=== PATIENT | female | born 1975 | race Caucasian/White ===

== ENCOUNTER 2016-05-15 10:16 | Emergency (ER) | payer SELFPAY ==
--- NOTE | 2016-05-15 10:31 | ER Document Report ---
ED Medical Screen (RME) - General Stated Complaint: NUMBNESS LEFT LEG Notes: patient is a 41 year old female PMH s/f rheumatoid arthritis p/w left leg numbness that initially p/w this complaint 03/10/16. At that time she was diagnosed with shingles and d/c home. Patient states that she had c/o left abdominal numbness and tingling with LE weakness lasting for about 14 days total. Since then she states her symptoms resolved but have come back. She admits to return of a vesicular rash about 7 days ago that has resolved but leaving numb/tingling feeling over her abdomen and numbness below the left knee. She is also concerned b/c she hasnt been able to urinate today. Denies UI/ SI, saddle anesthesia, pyuria, dysuria, hematuria. PMH: RA (-) pronator drift, no facial asymmetry, able to swallow coffee and speak normally. Able to move her left leg but weaker then the right. Strength 4/5 on the left, 5/5 on the right. DP intact b/l I have greeted and performed a rapid initial assessment of this patient. A comprehensive ED assessment and evaluation of the patient, analysis of test results and completion of the medical decision making process will be conducted by additional ED providers. TRAVEL OUTSIDE OF THE [place] IN LAST 30 DAYS: No - Related Data Allergies/Adverse Reactions: promethazine HCl [From Phenergan] Allergy (Verified 05/15/16 10:17) Past Medical History Musculoskeltal Medical History: Reports Hx Arthritis - ra - Immunizations Immunizations up to date: Yes Hx Diphtheria, Pertussis, Tetanus Vaccination: No
[2016-05-15 13:45] LABS: APPEARANCE,URINE TURBID; BILIRUBIN,URINE NEGATIVE (NEGATIVE); CALCIUM OXALATE CRYSTALS,URINE RARE /HPF; GLUCOSE, URINE NEGATIVE (NEGATIVE); KETONES,URINE TRACE mg/dL (NEGATIVE); LEUKOCYTE ESTERASE,URINE MODERATE (NEGATIVE); NITRITE,URINE NEGATIVE (NEGATIVE); PROTEIN,URINE 30 mg/dL (NEGATIVE); URINE SPECIFIC GRAVITY 1.029; UROBILINOGEN,URINE NEGATIVE mg/dL (<2.0)
--- NOTE | 2016-05-15 16:44 | ER Document Report ---
ED General - General Time seen by provider: 16:50 Mode of Arrival: Ambulatory Information source: Patient TRAVEL OUTSIDE OF THE [place]. IN LAST 30 DAYS: No - HPI Onset: Other - see HPI notes Quality of pain: Other - numbness <LESLYE BARKSDALE - Last Filed: 05/15/16 16:52> <VA ROSENTHAL - Last Filed: 05/15/16 23:29> <JAYME KINSEY - Last Filed: 05/16/16 06:17> - General Chief Complaint: Numbness Stated Complaint: NUMBNESS LEFT LEG Notes: Patient is a 41 year old female presenting to the emergency department with complaints of numbness to her left leg. Patient states that her left leg is completely numb and is worse from the knee down. Patient states that she cannot feel anything and she is unable to ambulate on her leg. Patient states her was helping her walk. Patient states her numbness was onset yesterday. Patient also complains of not being able to urinate today. Patient states she drank "lots of fluids" which was a cup of coffee and a small cup of water and states she has not been able to urinate. Patient provided a urine sample without a bean and it was quite concentrated. Patient then states she cannot feel when she needs to urinate. Patient has been taking tylenol and ibuprofen for some back pain she has due to RA. Patient was seen in 02/2016 for similar symptoms, numbness from the left inferior chest to the abdomen, thigh, and foot ; this lasted for 2 weeks. Patient also states she had "shingles" at this time which was on "both sides of her abdomen." Patient states she has a spot on her shoulder blades. Patient is allergic to promethazine HCl. (LESLYE BARKSDALE) - Related Data Allergies/Adverse Reactions: promethazine HCl [From Phenergan] Allergy (Verified 05/15/16 10:17) Past Medical History - General Information source: Patient - Social History Smoking Status: Never Smoker Cigarette use (# per day): No Chew tobacco use (# tins/day): No Frequency of alcohol use: None Drug Abuse: None Family History: None Patient has suicidal ideation: No Patient has homicidal ideation: No Pulmonary Medical History: Reports: Hx Bronchitis Musculoskeltal Medical History: Reports Hx Arthritis - RA Past Surgical History: Reports: Hx Gynecologic Surgery - D&C - Immunizations Immunizations up to date: Yes Hx Diphtheria, Pertussis, Tetanus Vaccination: No <LESLYE BARKSDALE - Last Filed: 05/15/16 16:52> Review of Systems - Review of Systems Constitutional: No symptoms reported EENT: No symptoms reported Cardiovascular: No symptoms reported Respiratory: No symptoms reported Gastrointestinal: No symptoms reported Genitourinary: See HPI Female Genitourinary: No symptoms reported Musculoskeletal: See HPI Skin: No symptoms reported Hematologic/Lymphatic: No symptoms reported Neurological/Psychological: No symptoms reported -: Yes All other systems reviewed and negative <LESLYE BARKSDALE - Last Filed: 05/15/16 16:52> Physical Exam - Vital signs Interpretation: Normal - General General appearance: Appears well, Alert In distress: Mild - HEENT Head: Normocephalic, Atraumatic Eyes: Normal Pupils: PERRL Mucous membranes: Moist - Respiratory Respiratory status: No respiratory distress Chest status: Nontender Breath sounds: Normal Chest palpation: Normal - Cardiovascular Rhythm: Regular Heart sounds: Normal auscultation Murmur: No - Abdominal Inspection: Normal Distension: No distension Bowel sounds: Normal Tenderness: Nontender Organomegaly: No organomegaly - Back Back: Normal, Nontender - Extremities General upper extremity: Normal inspection, Normal ROM, Normal strength General lower extremity: Normal inspection, Normal ROM, Normal strength, Other - sensation of left leg is intact, patient is able to feel light and gentle palpations of the calf up to the knee. No: Edema - Neurological Neuro grossly intact: Yes Cognition: Normal Orientation: AAOx4 [place] Coma Scale Eye Opening: Spontaneous [place] Coma Scale Verbal: Oriented Ellie Coma Scale Motor: Obeys Commands [place] Coma Scale Total: 15 Speech: Normal Sensory: Normal - Psychological Associated symptoms: Normal affect, Normal mood - Skin Skin Temperature: Warm Skin Moisture: Dry <LESLYE BARKSDALE - Last Filed: 05/15/16 16:52> - Extremities General lower extremity: No: Normal strength - The patient's left lower extremity is tender to palpate throughout the entire extremity. The patient's motor function seems to be slightly weaker with dorsi and plantar flexion at the ankle on the left compared to right. She complains of severe pain in the leg when I have her dorsiflex and plantar flex against resistance. The skin is warm with normal capillary refill, there is no swelling at all. <VA ROSENTHAL - Last Filed: 05/15/16 23:29> <JAYME KINSEY - Last Filed: 05/16/16 06:17> - Vital signs Vitals: Temp Pulse Resp BP Pulse Ox 97.9 F 125 H 14 100/75 100 05/15/16 10:21 05/15/16 10:21 05/15/16 10:21 05/15/16 10:21 05/15/16 10:21 (LESLYE BARKSDALE) (VA ROSENTHAL) (JAYME KINSEY) Course <LESLYE BARKSDALE - Last Filed: 05/15/16 16:52> - Laboratory Result Diagrams: 05/15/16 17:42 05/15/16 17:42 - Diagnostic Test Radiology reviewed: Reports reviewed - MRI of the lumbar spine is normal - Consults Dr. Oh Time consulted: 23:00 Consulted provider: other - He is unwilling to admit the patient for a trial of steroids to see if that improves her symptoms, and then transfer out if there is no improvement. We do not have neurology or rheumatology on staff - Transfer of Care Care transferred to following provider: Dr. Kinsey <VA ROSENTHAL - Last Filed: 05/15/16 23:29> - Laboratory Result Diagrams: 05/15/16 17:42 05/15/16 17:42 <JAYME KINSEY - Last Filed: 05/16/16 06:17> - Re-evaluation Re-evalutation: 05/15/16 19:06 A Bean catheter was placed. There was 500 MLS of concentrated urine. We will get an MRI of the L-spine to exclude an emergent neurological cause for her symptoms. 05/15/16 22:36 The MRI is completely normal. At this point there is no explanation for her left lower extremity paresthesias and weakness. I told her that an intracranial issue such as multiple sclerosis should not result in the pain she is feeling when she moves that extremity. In trying to discuss treatment options and management, the patient and spouse reveal that there are no lower have insurance because of recent increased costs. They do not have primary care provider. She is adamant that she cannot walk any longer because of the left lower extremity weakness. She becomes tearful and crying when we try to discuss outpatient management options. (VA ROSENTHAL) 05/16/16 05:46 I have reevaluated the patient. I'm concerned because she has significant weakness of the left lower extremity with some numbness. She has some strength with plantar and dorsiflexion but it is minimal. She does have Bean catheter in place because of the urinary retention. She does complain of several anesthesia. Symptoms sound very consistent with cauda equina syndrome. She did have the lumbar spine MRI which was negative. I asked her further about her history. She says that she was having some pain in the thoracic spine over last 2-3 days prior to the symptoms beginning. She does have a history of recurrent shingles the radiates around her left flank and the pain does start to run the thoracic spine. She's had some burning along that dermatome recently but no recurrence of rash. Dr. Ngo checked out to me that the patient would be getting an MRI of the head in the morning. I will add an MRI of thoracic spine. She has been given steroids. Patient says her symptoms have not changed since he arrived. She says they have not gotten worse but they have not gotten better either. I'm concerned with patient's evaluation and therefore I will go ahead and consult with neurosurgery at [facility] and see if they have any further recommendations leading up to obtain the MRI. I'm awaiting neurosurgery's response. 05/16/16 05:49 05/16/16 06:[address] Taylor, neurosurgeon from [facility] , and explained him the patient's physical exam findings and my concerns for possible spinal cord impingement. Informed him that have ordered the thoracic spine MRI but will not be obtainable to around 8 AM. At this time he says that he agrees with the ordered MRI. He recommends giving the patient Decadron. He says that the patient has a spinal cord lesion on MRI than he be happy to accept the patient for transfer. If there is not a spinal cord lesion then request that we consult the medicine team for transfer and he would see the patient in consult. I have explained the situation to the patient and she is very very agreeable to the plan. (JAYME KINSEY) - Vital Signs Vital signs: Temp Pulse Resp BP Pulse Ox 98.4 F 103 H 16 119/78 98 05/16/16 06:00 05/16/16 06:00 05/16/16 06:00 05/16/16 06:00 05/16/16 06:00 (LESLYE BARKSDALE) (VA ROSENTHAL) (JAYME KINSEY) - Laboratory Laboratory results interpreted by me: 05/15/16 05/15/16 05/15/16 13:16 17:42 17:42 WBC 3.1 L RBC 5.33 H MCV 73 L MCH 23.5 L RDW 16.6 H Abs Neuts (Manual) 1.4 L ESR 43 H Potassium 3.5 L Creatinine 0.44 L Glucose 122 H Creatine Kinase 26 L C-Reactive Protein 10.2 H Total Protein 8.4 H Urine Protein 30 H Urine Ketones TRACE H Ur Leukocyte Esterase MODERATE H 05/15/16 17:42 WBC RBC MCV MCH RDW Abs Neuts (Manual) ESR Potassium Creatinine Glucose Creatine Kinase C-Reactive Protein Total Protein Urine Protein Urine Ketones TRACE H Ur Leukocyte Esterase (LESLYE BARKSDALE) (VA ROSENTHAL) (JAYME KINSEY) - Transfer of Care Notes: 05/15/16 23:29 The patient will remain in the emergency room tonight and get an MRI of the brain in the morning. Ultimate disposition depends on results of a brain MRI and her response to steroids. (VA ROSENTHAL) Discharge <LESLYE BARKSDALE - Last Filed: 05/15/16 16:52> <VA ROSENTHAL - Last Filed: 05/15/16 23:29> <JAYME KINSEY - Last Filed: 05/16/16 06:17> - Discharge Clinical Impression: Incomplete emptying of bladder, Skin sensation disturbance, Weakness of lower extremity Condition: Stable Scribe Attestation: 05/15/16 23:30 I personally performed the services described in the documentation, reviewed and edited the documentation which was dictated to the scribe in my presence, and it accurately records my words and actions. (VA ROSENTHAL) Scribe Documentation - Scribe Written by Scribe:: Leslye Barksdale 05/15/16 17:05 acting as scribe for :: Vicki <LESLYE BARKSDALE - Last Filed: 05/15/16 16:52>
[2016-05-15 18:07] LABS: APPEARANCE,URINE CLEAR; BILIRUBIN,URINE NEGATIVE (NEGATIVE); GLUCOSE, URINE NEGATIVE (NEGATIVE); KETONES,URINE TRACE mg/dL (NEGATIVE); LEUKOCYTE ESTERASE,URINE NEGATIVE (NEGATIVE); NITRITE,URINE NEGATIVE (NEGATIVE); PROTEIN,URINE NEGATIVE (NEGATIVE); URINE SPECIFIC GRAVITY 1.023; UROBILINOGEN,URINE NEGATIVE mg/dL (<2.0)
[2016-05-15 18:10] LABS: HEMATOCRIT 38.9 % (36.0-47.0); HEMOGLOBIN 12.5 g/dL (12.0-15.5); HGB HCT DIFFERENCE -1.4; MEAN CORPUSCULAR HEMOGLOBIN 23.5 pg (27.0-33.4); MEAN CORPUSCULAR HGB CONC 32.2 g/dL (32.0-36.0); MEAN CORPUSCULAR VOLUME 73 fl (80-97); RED BLOOD COUNT 5.33 10^6/uL (3.72-5.28); RED CELL DISTRIBUTION WIDTH 16.6 % (11.5-14.0); WHITE BLOOD COUNT 3.1 10^3/uL (4.0-10.5)
[2016-05-15 18:15] LABS: ALANINE AMINOTRANSFERASE 48 U/L (9-52); ALKALINE PHOSPHATASE 91 U/L (38-126); ANION GAP 11 (5-19); ASPARTATE AMINO TRANSFERASE 36 U/L (14-36); BILIRUBIN,TOTAL 0.6 mg/dL (0.2-1.3); BLOOD UREA NITROGEN 17 mg/dL (7-20); C-REACTIVE PROTEIN 10.2 mg/L (<10.0); CALCIUM 9.4 mg/dL (8.4-10.2); CARBON DIOXIDE 27 mmol/L (22-30); CHLORIDE 102 mmol/L (98-107); CREATINE KINASE 26 U/L (30-135); CREATININE RESULT 0.44 mg/dL (0.52-1.25); GLUCOSE 122 mg/dL (75-110); MAGNESIUM 2.1 mg/dL (1.6-2.3); POTASSIUM 3.5 mmol/L (3.6-5.0); SODIUM 140.2 mmol/L (137-145); TOTAL PROTEIN 8.4 g/dL (6.3-8.2)
[2016-05-15 18:36] LABS: ERYTHROCYTE SEDIMENTATION RATE 43 mm/hr (0-20)
[2016-05-15 18:44] LABS: BASOPHILS % (MANUAL) 2 % (0-2); EOSINOPHILS % (MANUAL) 2 % (0-6); LYMPHOCYTES % (MANUAL) 31 % (13-45); TOTAL CELLS COUNTED 100
[2016-05-15 18:50] LABS: TOXIC GRANULATION 1+
[2016-05-15 18:51] LABS: ANISOCYTOSIS 1+; HYPOCHROMASIA SLIGHT; MICROCYTOSIS 1+; OVALOCYTES 1+; SCHISTOCYTES SLIGHT; TEAR DROP CELLS SLIGHT
[2016-05-15] MEDS ORDERED: PREDNISONE 20 MG TABLET PO ONE (23:08)
[2016-05-16] MEDS ORDERED: DEXAMETHASONE SOD PHOS INJ 10 MG/1 ML VIAL IV ONE (06:10)
[2016-05-16] MEDS ORDERED: NORMAL SALINE 1000 ML 1,000 ML IV ONE (08:45)
--- NOTE | 2016-05-16 13:38 | ER Document Report ---
ED General - General Chief Complaint: Numbness Stated Complaint: NUMBNESS LEFT LEG Mode of Arrival: Ambulatory TRAVEL OUTSIDE OF THE [place] IN LAST 30 DAYS: No - HPI Patient complains to provider of: numbness weakness left leg Notes: Patient coming in with numbness and weakness of the left leg a decrease in depression left leg. Patient was seen and evaluated by provider approximately now 24 hours ago. Patient's disposition has been pending MRI results. Patient upon my examination resting comfortably in no acute distress. Patient still states no change in her symptoms but is unable to move her left leg. Patient now has a Donis catheter placed due to urinary incontinence. Patient still states she is still having numbness and tingling in the saddle region Denies fevers chills nausea vomiting increased pain or change in symptoms. - Related Data Allergies/Adverse Reactions: promethazine HCl [From Phenergan] Allergy (Verified 05/15/16 10:17) Past Medical History - General Information source: Patient - Social History Smoking Status: Never Smoker Cigarette use (# per day): No Chew tobacco use (# tins/day): No Frequency of alcohol use: None Drug Abuse: None Family History: None Patient has suicidal ideation: No Patient has homicidal ideation: No Pulmonary Medical History: Reports: Hx Bronchitis Renal/ Medical History: Denies: Hx Peritoneal Dialysis Musculoskeltal Medical History: Reports Hx Arthritis - RA Past Surgical History: Reports: Hx Gynecologic Surgery - D&C - Immunizations Immunizations up to date: Yes Hx Diphtheria, Pertussis, Tetanus Vaccination: No Review of Systems - Review of Systems Constitutional: No symptoms reported EENT: No symptoms reported Cardiovascular: No symptoms reported Respiratory: No symptoms reported Gastrointestinal: No symptoms reported Genitourinary: No symptoms reported Female Genitourinary: No symptoms reported Musculoskeletal: Other - Left lower extremity weakness Skin: No symptoms reported Hematologic/Lymphatic: No symptoms reported Neurological/Psychological: No symptoms reported Physical Exam - Vital signs Vitals: Temp Pulse Resp BP Pulse Ox 97.9 F 125 H 14 100/75 100 05/15/16 10:21 05/15/16 10:21 05/15/16 10:21 05/15/16 10:21 05/15/16 10:21 Interpretation: Normal - General General appearance: Appears well, Alert - HEENT Head: Normocephalic, Atraumatic Eyes: Normal Pupils: PERRL - Respiratory Respiratory status: No respiratory distress Chest status: Nontender Breath sounds: Normal Chest palpation: Normal - Cardiovascular Rhythm: Regular Heart sounds: Normal auscultation Murmur: No - Abdominal Inspection: Normal Distension: No distension Bowel sounds: Normal Tenderness: Nontender Organomegaly: No organomegaly - Back Back: Normal, Nontender - Extremities General upper extremity: Normal inspection, Nontender, Normal color, Normal ROM , Normal temperature General lower extremity: Normal inspection, Normal color, Normal temperature, Other - Right leg unaffected with normal deep tendon reflexes at the patellar region. Patient's left leg patient is unable to raise her left leg off of the stretcher. Diffusely tender throughout palpation of the left leg. There are no deep tendon reflexes on examination. Patient does have some "numbness or decreased sensation in the sellar region. At this time defers rectal exam. No : Benjamin's sign - Neurological Neuro grossly intact: Yes Cognition: Normal Orientation: AAOx4 [place] Coma Scale Eye Opening: Spontaneous Ellie Coma Scale Verbal: Oriented Ellie Coma Scale Motor: Obeys Commands Ellie Coma Scale Total: 15 Speech: Normal Sensory: Normal - Psychological Associated symptoms: Normal affect, Normal mood - Skin Skin Temperature: Warm Skin Moisture: Dry Skin Color: Normal Course - Re-evaluation Re-evalutation: 05/16/16 13:37 Patient MRI shows spinal cord lesion with some swelling C4-C5 lesion at T1-T5. Discussed with our radiologist who recommended patient be transferred to [place] for [facility]. I placed a call in to [place] waiting for neurosurgery consultation. Otherwise patient is symptomatically stable. Will remain nothing by mouth we' ll continue IV fluids. 05/16/16 14:[address]Kari Zayas Neurosurgery at [place]. Patient will be transferred to the ER. Patient was updated on transfer status. - Vital Signs Vital signs: Temp Pulse Resp BP Pulse Ox 98.4 F 103 H 16 119/78 98 05/16/16 06:00 05/16/16 06:00 05/16/16 06:00 05/16/16 06:00 05/16/16 06:00 - Laboratory Result Diagrams: 05/15/16 17:42 05/15/16 17:42 Laboratory results interpreted by me: 05/15/16 05/15/16 05/15/16 13:16 17:42 17:42 WBC 3.1 L RBC 5.33 H MCV 73 L MCH 23.5 L RDW 16.6 H Abs Neuts (Manual) 1.4 L ESR 43 H Potassium 3.5 L Creatinine 0.44 L Glucose 122 H Creatine Kinase 26 L C-Reactive Protein 10.2 H Total Protein 8.4 H Urine Protein 30 H Urine Ketones TRACE H Ur Leukocyte Esterase MODERATE H 05/15/16 17:42 WBC RBC MCV MCH RDW Abs Neuts (Manual) ESR Potassium Creatinine Glucose Creatine Kinase C-Reactive Protein Total Protein Urine Protein Urine Ketones TRACE H Ur Leukocyte Esterase Discharge - Discharge Clinical Impression: Urinary retention with incomplete bladder emptying, Paresthesias/numbness, spinal cord lesion mass Weakness of lower extremity Qualifiers: Laterality: left Qualified Code(s): R29.898 - Other symptoms and signs involving the musculoskeletal system Condition: Stable Disposition: [facility]
[2016-05-16] MEDS ORDERED: POTASSIUM CHLORIDE 10 MEQ TABLET.SA PO ONE (14:15)
[2016-05-16 20:23] VITALS: BP 125/82
== END 2016-05-16 19:57 | disposition short-term general hospital (02) ==
LOC: ER 10:16
DX: G95.9 Disease of spinal cord, unspecified (principal); R20.0 Anesthesia of skin; R53.1 Weakness; R32 Unspecified urinary incontinence; R33.9 Retention of urine, unspecified; M06.9 Rheumatoid arthritis, unspecified; Z88.8 Allergy status to other drugs, medicaments and biological substances
CPT/HCPCS: 99284; 51702; 96374; 36415; 82550; 83735; 85025; 85652; 86140; 80053; 81001; 72156; 72157; 72148; A9577; J7512; J7030; J1100

== ENCOUNTER 2016-09-21 18:33 | Emergency (ER) | payer MEDICAID ==
[2016-09-21] MEDS ORDERED: NORMAL SALINE 1000 ML 1,000 ML IV ONE (19:10)
--- NOTE | 2016-09-21 19:11 | ER Document Report ---
ED Medical Screen (RME) - General Chief Complaint: Numbness Stated Complaint: NUMBNESS Time Seen by Provider: 09/21/16 18:59 TRAVEL OUTSIDE OF THE [place].S. IN LAST 30 DAYS: No - HPI Notes: 09/21/16 19:10 Patient with neuro myelitis optica seen at [place] for increasing numbness and weakness. - Related Data Allergies/Adverse Reactions: promethazine HCl [From Phenergan] Allergy (Verified 09/21/16 18:39) Past Medical History Pulmonary Medical History: Reports: Hx Bronchitis Renal/ Medical History: Denies: Hx Peritoneal Dialysis Musculoskeltal Medical History: Reports Hx Arthritis - RA Past Surgical History: Reports: Hx Gynecologic Surgery - D&C - Immunizations Immunizations up to date: Yes Hx Diphtheria, Pertussis, Tetanus Vaccination: No Review of Systems - Review of Systems Constitutional: Weakness Physical Exam - Vital signs Vitals: Temp Pulse Resp BP Pulse Ox 98.2 F 136 H 16 119/72 100 09/21/16 18:39 09/21/16 18:39 09/21/16 18:39 09/21/16 18:39 09/21/16 18:39 - Respiratory Respiratory status: No respiratory distress Chest status: Nontender Breath sounds: Normal Chest palpation: Normal Course - Vital Signs Vital signs: Temp Pulse Resp BP Pulse Ox 98.2 F 136 H 16 119/72 100 09/21/16 18:39 09/21/16 18:39 09/21/16 18:39 09/21/16 18:39 09/21/16 18:39
[2016-09-21 19:20] LABS: MEAN CORPUSCULAR HEMOGLOBIN 23.2 pg (27.0-33.4); MEAN CORPUSCULAR HGB CONC 31.3 g/dL (32.0-36.0); MEAN CORPUSCULAR VOLUME 74 fl (80-97); RED BLOOD COUNT 4.32 10^6/uL (3.72-5.28); RED CELL DISTRIBUTION WIDTH 21.1 % (11.5-14.0); WHITE BLOOD COUNT 4.4 10^3/uL (4.0-10.5)
[2016-09-21 19:36] LABS: ALANINE AMINOTRANSFERASE 34 U/L (9-52); ALBUMIN 4.3 g/dL (3.5-5.0); ALKALINE PHOSPHATASE 78 U/L (38-126); ANION GAP 11 (5-19); ASPARTATE AMINO TRANSFERASE 20 U/L (14-36); BASOPHILS % (MANUAL) 2 % (0-2); BILIRUBIN,DIRECT 0.3 mg/dL (0.0-0.4); BILIRUBIN,TOTAL 0.5 mg/dL (0.2-1.3); BLOOD UREA NITROGEN 14 mg/dL (7-20); CALCIUM 9.1 mg/dL (8.4-10.2); CARBON DIOXIDE 25 mmol/L (22-30); CHLORIDE 106 mmol/L (98-107); CREATININE RESULT 0.34 mg/dL (0.52-1.25); EOSINOPHILS % (MANUAL) 4 % (0-6); GLUCOSE 110 mg/dL (75-110); LYMPHOCYTES % (MANUAL) 19 % (13-45); PHOSPHORUS 3.4 mg/dL (2.5-4.5); POTASSIUM 3.3 mmol/L (3.6-5.0); SODIUM 142.4 mmol/L (137-145); TOTAL CELLS COUNTED 100; TOTAL PROTEIN 7.2 g/dL (6.3-8.2)
[2016-09-21 19:37] LABS: CREATINE KINASE < 20 U/L (30-135)
[2016-09-21 19:41] LABS: ANISOCYTOSIS 3+; MICROCYTOSIS 1+; OVALOCYTES SLIGHT; POIKILOCYTOSIS 1+; POLYCHROMASIA SLIGHT; TARGET CELLS SLIGHT; TEAR DROP CELLS SLIGHT
[2016-09-21 19:42] LABS: PLATELET CLUMPS PRESENT
[2016-09-21 19:43] LABS: TOXIC GRANULATION SLIGHT
--- NOTE | 2016-09-21 20:16 | ER Document Report ---
ED General - General Chief Complaint: Numbness Stated Complaint: NUMBNESS Time Seen by Provider: 09/21/16 18:59 Mode of Arrival: Wheelchair Information source: Patient, Parent Notes: 41-year-old female history of neuromuscular optica with recent treatment with rituximab and plasmapheresis 2 weeks ago and steroids 1 month ago presents with complaints of paralysis numbness of the bilateral lower extremities and numbness up to her mid chest over the past day or 2 TRAVEL OUTSIDE OF THE [place] IN LAST 30 DAYS: No - HPI Onset: Last week Onset/Duration: Persistent, Worse Quality of pain: No pain Severity: Severe Pain Level: Denies Associated symptoms: Weakness Exacerbated by: Denies Relieved by: Denies Similar symptoms previously: Yes Recently seen / treated by doctor: Yes - Related Data Allergies/Adverse Reactions: promethazine HCl [From Phenergan] Allergy (Verified 09/21/16 18:39) Past Medical History - Social History Smoking Status: Never Smoker Cigarette use (# per day): No Chew tobacco use (# tins/day): No Smoking Education Provided: No Family History: None Patient has suicidal ideation: No Patient has homicidal ideation: No Pulmonary Medical History: Reports: Hx Bronchitis Renal/ Medical History: Denies: Hx Peritoneal Dialysis Musculoskeltal Medical History: Reports Hx Arthritis - RA Past Surgical History: Reports: Hx Gynecologic Surgery - D&C - Immunizations Immunizations up to date: Yes Hx Diphtheria, Pertussis, Tetanus Vaccination: No Review of Systems - Review of Systems Notes: REVIEW OF SYSTEMS: CONSTITUTIONAL : Denies fever, chills, or sweats. Denies recent illness. EENT: Denies eye, ear, throat, or mouth pain or symptoms. Denies nasal or sinus congestion or discharge. Denies throat, tongue, or mouth swelling or difficulty swallowing. CARDIOVASCULAR: Denies chest pain. Denies palpitations or racing or irregular heart beat. Denies ankle edema. RESPIRATORY: Denies cough, cold, or chest congestion. Denies shortness of breath, difficulty breathing, or wheezing. GASTROINTESTINAL: Denies abdominal pain or distention. Denies nausea, vomiting , or diarrhea. Denies blood in vomitus, stools, or per rectum. Denies black, tarry stools. Denies constipation. GENITOURINARY: Denies difficulty urinating, painful urination, burning, frequency, blood in urine, or discharge. FEMALE GENITOURINARY: Denies vaginal bleeding, heavy or abnormal periods, irregular periods. Denies vaginal discharge or odor. MUSCULOSKELETAL: Denies back or neck pain or stiffness. Denies joint pain or swelling. SKIN: Denies rash, lesions or sores. HEMATOLOGIC : Denies easy bruising or bleeding. LYMPHATIC: Denies swollen, enlarged glands. NEUROLOGICAL: Admits to weakness numbness of the lower extremities PSYCHIATRIC: Denies anxiety or stress. Denies depression, suicidal ideation, or homicidal ideation. ALL OTHER SYSTEMS REVIEWED AND NEGATIVE. PHYSICAL EXAMINATION: GENERAL: Well-appearing, well-nourished and in no acute distress. HEAD: Atraumatic, normocephalic. EYES: Pupils equal round and reactive to light, extraocular movements intact, conjunctiva are normal. ENT: Nares patent, oropharynx clear without exudates. Moist mucous membranes. NECK: Normal range of motion, supple without lymphadenopathy LUNGS: Breath sounds clear to auscultation bilaterally and equal. No wheezes rales or rhonchi. HEART: Regular rate and rhythm without murmurs ABDOMEN: Soft, nontender, nondistended abdomen. No guarding, no rebound. No masses appreciated. Female : deferred Musculoskeletal: Normal range of motion, no pitting or edema. No cyanosis. NEUROLOGICAL: Patient is unable to move her bilateral lower extremities, numbness is noted from toes to the T5 region PSYCH: Normal mood, normal affect. SKIN: Warm, Dry, normal turgor, no rashes or lesions noted. Dictation was performed using [email or web address] voice recognition software Physical Exam - Vital signs Vitals: Temp Pulse Resp BP Pulse Ox 98.2 F 136 H 16 119/72 100 09/21/16 18:39 09/21/16 18:39 09/21/16 18:39 09/21/16 18:39 09/21/16 18:39 Course - Re-evaluation Re-evalutation: 09/21/16 20:16 [facility] transfer contacted ] Pt physicians is Dr Mauricio 09/21/16 20:28 Dr Perez requests holdingon any meds for now,agrees patient will need transfer there is no respiratroy distress at this time but obvious concerns for diaphragm involvement 09/21/16 20:32 09/21/16 20:51 There is no involvement of the diaphragm at this moment however patient does have some difficulty with coughing, due to this concern she will be transported emergency department to emergency department at [facility] she is awaiting transport at this time - Vital Signs Vital signs: Temp Pulse Resp BP Pulse Ox 98.2 F 108 H 18 116/76 100 09/21/16 18:39 09/21/16 20:06 09/21/16 20:06 09/21/16 20:06 09/21/16 20:06 - Laboratory Result Diagrams: 09/21/16 19:08 09/21/16 19:08 Laboratory results interpreted by me: 09/21/16 09/21/16 19:08 19:08 Hgb 10.0 L Hct 32.0 L MCV 74 L MCH 23.2 L MCHC 31.3 L RDW 21.1 H Monocytes % (Manual) 15 H Potassium 3.3 L Creatinine 0.34 L Creatine Kinase < 20 L Discharge - Discharge Clinical Impression: Neuromuscular optica, Paraplegia Condition: Serious Disposition: [facility]
--- NOTE | 2016-09-21 22:41 | EKG REPORT ---
SEVERITY:- OTHERWISE NORMAL ECG - SINUS TACHYCARDIA LEFT AXIS DEVIATION : Confirmed by: Uzma Golden 21-Sep-2016 22:40:33
[2016-09-22 01:50] VITALS: BP 105/68
== END 2016-09-22 01:45 | disposition short-term general hospital (02) ==
LOC: ER 18:33
DX: G70.89 Other specified myoneural disorders (principal); G82.20 Paraplegia, unspecified; R20.0 Anesthesia of skin; Z88.8 Allergy status to other drugs, medicaments and biological substances
CPT/HCPCS: 93005; 99285; 96360; 36415; 82550; 83735; 84100; 85025; 80053; 93010; J7030

== ENCOUNTER 2016-12-06 16:21 | Emergency (ER) | payer SELFPAY ==
[2016-12-06] MEDS ORDERED: NORMAL SALINE 1000 ML 1,000 ML IV ONE (16:46)
--- NOTE | 2016-12-06 16:47 | ER Document Report ---
ED Medical Screen (RME) - General Chief Complaint: Abdominal Pain Stated Complaint: ABDOMINAL ANS LEFT LEG NUMBNESS Time Seen by Provider: 12/06/16 16:44 Mode of Arrival: Wheelchair Information source: Patient, Relative TRAVEL OUTSIDE OF THE [place] IN LAST 30 DAYS: No - HPI Patient complains to provider of: abd pain/numbness Onset: This morning - pt has h/o NMO treated at [facility] with c/o abd pain/ numbness - Related Data Allergies/Adverse Reactions: promethazine HCl [From Phenergan] Allergy (Verified 12/06/16 16:25) Past Medical History - Social History Chew tobacco use (# tins/day): No Frequency of alcohol use: None Drug Abuse: None Pulmonary Medical History: Reports: Hx Bronchitis Renal/ Medical History: Denies: Hx Peritoneal Dialysis Musculoskeltal Medical History: Reports Hx Arthritis - RA Past Surgical History: Reports: Hx Gynecologic Surgery - D&C - Immunizations Immunizations up to date: Yes Hx Diphtheria, Pertussis, Tetanus Vaccination: No Physical Exam - Vital signs Vitals: Temp Pulse Resp BP Pulse Ox 97.6 F 102 H 18 113/78 99 12/06/16 16:24 12/06/16 16:24 12/06/16 16:24 12/06/16 16:24 12/06/16 16:24 Course - Vital Signs Vital signs: Temp Pulse Resp BP Pulse Ox 97.6 F 102 H 18 113/78 99 12/06/16 16:24 12/06/16 16:24 12/06/16 16:24 12/06/16 16:24 12/06/16 16:24
[2016-12-06 17:15] LABS: ABSOLUTE BASOPHILS # (AUTO) 0.1 10^3/uL (0.0-0.2); ABSOLUTE EOSINOPHILS # (AUTO) 0.1 10^3/uL (0.0-0.6); ABSOLUTE LYMPHOCYTES (AUTO) 1.1 10^3/uL (0.5-4.7); ABSOLUTE MONOCYTES (AUTO) 0.7 10^3/uL (0.1-1.4); ABSOLUTE NEUT (AUTO) 2.3 10^3/uL (1.7-8.2); BASOPHILS % (AUTO) 1.5 % (0-2); EOSINOPHILS % (AUTO) 1.6 % (0-6); HEMOGLOBIN 11.6 g/dL (12.0-15.5); HGB HCT DIFFERENCE -2.2; MEAN CORPUSCULAR HEMOGLOBIN 23.4 pg (27.0-33.4); MEAN CORPUSCULAR HGB CONC 31.4 g/dL (32.0-36.0); MEAN CORPUSCULAR VOLUME 75 fl (80-97); MONOCYTES % (AUTO) 16.4 % (3-13); RED BLOOD COUNT 4.96 10^6/uL (3.72-5.28); RED CELL DISTRIBUTION WIDTH 18.6 % (11.5-14.0); SEGMENTED NEUTROPHILS % (AUTO) 54.5 % (42-78); WHITE BLOOD COUNT 4.2 10^3/uL (4.0-10.5)
[2016-12-06 17:31] LABS: ALANINE AMINOTRANSFERASE 32 U/L (9-52); ALBUMIN 4.2 g/dL (3.5-5.0); ALKALINE PHOSPHATASE 104 U/L (38-126); ANION GAP 12 (5-19); ASPARTATE AMINO TRANSFERASE 21 U/L (14-36); BILIRUBIN,DIRECT 0.3 mg/dL (0.0-0.4); BILIRUBIN,TOTAL 0.3 mg/dL (0.2-1.3); BLOOD UREA NITROGEN 9 mg/dL (7-20); CALCIUM 9.5 mg/dL (8.4-10.2); CARBON DIOXIDE 27 mmol/L (22-30); CHLORIDE 105 mmol/L (98-107); CREATININE RESULT 0.58 mg/dL (0.52-1.25); GLUCOSE 82 mg/dL (75-110); SODIUM 143.5 mmol/L (137-145); TOTAL PROTEIN 6.8 g/dL (6.3-8.2)
--- NOTE | 2016-12-06 18:07 | ER Document Report ---
ED GI/ <REINALDO HUERTA - Last Filed: 12/07/16 00:38> - General Mode of Arrival: Wheelchair Information source: Patient, Relative - spouse TRAVEL OUTSIDE OF THE [place] 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 Patient states she sees Dr. Mauricio at [place] for this disease. Patient states she is having difficulty with her breathing due to not being able to feel her muscles in her left side and ribs. Patient states she has stiffness and numbness in this area and she has to concentrate to get a deep, full breath. Patient states she feels more numb than normal. Patient also has numbness in her left hip extending into her left knee. Patient states that she also has numbness to both sides of her tongue and her eyes feel more heavy than normal. Patient denies any cough, fever , or abdominal pain. Patient states the last few times she had a flare up where she lost the strength of her core muscles and had to be transferred to [place]. Sometimes the patient has flares where she gets steroids or will need to get an MRI. Patient also has a history of RA and takes multiple nerve pain medications. (LESLYE BARKSDALE) - Related Data Allergies/Adverse Reactions: promethazine HCl [From Phenergan] Allergy (Verified 12/06/16 16:25) Past Medical History - General Information source: Patient, Relative - spouse - Social History Smoking Status: Never Smoker Cigarette use (# per day): No Chew tobacco use (# tins/day): No Frequency of alcohol use: None Drug Abuse: None Family History: None Patient has suicidal ideation: No Patient has homicidal ideation: No Pulmonary Medical History: Reports: Hx Bronchitis Neurological Medical History: Reports: Other - neuromyelitis optica Musculoskeltal Medical History: Reports Hx Arthritis - RA Past Surgical History: Reports: Hx Gynecologic Surgery - D&C - Immunizations Immunizations up to date: Yes Hx Diphtheria, Pertussis, Tetanus Vaccination: No <LESLYE BARKSDALE - Last Filed: 12/07/16 02:54> Review of Systems - Review of Systems Constitutional: No symptoms reported. denies: Fever EENT: No symptoms reported Cardiovascular: No symptoms reported Respiratory: See HPI. denies: Cough Gastrointestinal: No symptoms reported. denies: Abdominal pain Genitourinary: No symptoms reported Female Genitourinary: No symptoms reported Musculoskeletal: See HPI Skin: No symptoms reported Hematologic/Lymphatic: No symptoms reported Neurological/Psychological: No symptoms reported <LESLYE BARKSDALE - Last Filed: 12/07/16 02:54> Physical Exam <REINALDO HUERTA - Last Filed: 12/07/16 00:38> - Vital signs Interpretation: Normal <LESLYE BARKSDALE - Last Filed: 12/07/16 02:54> <GISEL LOVE - Last Filed: 12/07/16 10:31> - Vital signs Vitals: Temp Pulse Resp BP Pulse Ox 97.6 F 102 H 18 113/78 99 12/06/16 16:24 12/06/16 16:24 12/06/16 16:24 12/06/16 16:24 12/06/16 16:24 Notes: Vitals at 12/06/2016 22:22 Heart rate: 79 bpm, Blood Pressure: 120/75, O2 Saturation: 100% on RA, Temperature: 97.7 F (LESLYE BARSKDALE) - Notes Notes: GENERAL: Alert, interacts well. No acute distress. HEAD: Normocephalic, atraumatic. EYES: Pupils equal, round, and reactive to light. Extraocular movements intact. ENT: Oral mucosa moist, tongue midline. NECK: Full range of motion. Supple. Trachea midline. LUNGS: Clear to auscultation bilaterally, no wheezes, rales, or rhonchi. Able to take a full deep breath, no objective signs of respiratory compromise. No respiratory distress. HEART: Regular rate and rhythm. No murmurs, gallops, or rubs. ABDOMEN: Soft, non-tender. Non-distended. Bowel sounds present in all 4 quadrants. EXTREMITIES: No edema, radial and dorsalis pedis pulses 2/4 bilaterally. No cyanosis. NEUROLOGICAL: Alert and oriented x3. Normal speech. PSYCH: Normal affect, normal mood. SKIN: Warm, dry, normal turgor. No rashes or lesions noted. (LESLYE BARKSDALE) Course - Laboratory Result Diagrams: 12/06/16 16:50 12/06/16 16:50 <REINALDO HUERTA - Last Filed: 12/07/16 00:38> - Laboratory Result Diagrams: 12/06/16 16:50 12/06/16 16:50 - Consults [facility] Time consulted: 18:30 Dr. Oliva Time consulted: 22:21 <LESLYE BARKSDALE - Last Filed: 12/07/16 02:54> - Laboratory Result Diagrams: 12/06/16 16:50 12/06/16 16:50 <GISEL LOVE - Last Filed: 12/07/16 10:31> - Re-evaluation Re-evalutation: 12/06/16 23:50 CBC shows mild anemia with hemoglobin 11.6, CMP unremarkable, lipase normal. Discussed patient with resident at [facility] who discussed the patient with his attending, states that there is no need to transfer the patient until we can prove that this is actually flare, states we should get an MRI both with and without contrast of the cervical and thoracic spine to look for enhancement. States that if there is enhancement they will gladly accept the patient as they will likely be able to intervene, otherwise the patient does not need any intervention and can be discharged to home. As we are unable to get an MRI this evening he recommends admitting the patient getting an MR in the morning and then calling for transfer should the patient have enhancement on the MRI. States that we do not need to start treatment in the form of steroids or any other intervention at this time. Discussed the patient with Dr. Oliva who will evaluate the patient prior to deciding whether or not to accept the patient to his service to continue to monitor for respiratory decompensation overnight. Resident did state that if she ever develops any objective signs of respiratory compromise she should be transferred immediately to [place]. 12/07/16 00:38 Continue to await for evaluation by Dr. Oliva. Should he be unwilling to accept the patient to his service patient will remain instead in the emergency department until an MRI scan can be performed. Should it show enhancement Dr. Jeffers has left a note in the chart at [facility] stating that they will accept the patient. If there is no enhancement patient should be discharged to home. Should the patient develop any respiratory compromise objectively patient should be emergently transferred to [place]. Patient was signed out to Dr. Love. (REINALDO HUERTA) 12/07/16 02:08 Spoke to the patient about the current transfer situation. Patient states she normally gets transferred to [facility] when she has a flare and is unsure why she is not being transferred. Also discussed patient's urine results with her and she states she is incontinent and is unsure if she has a UTI unless her urine is tested because she cannot feel any urinary symptoms. All questions were answered at this time. (LESLYE BARKSDALE) 12/07/16 02:3 0 Patient seen by the hospitalist service. Hospitalist is uncomfortable admitting the patient here. Patient is meantime has developed increasing weakness. Patient was discussed with [facility] in the patient's also requesting to be seen by her own neurologist at [facility]. Patient will be transferred to the emergency department there. Agrees with this plan. Patient started on Rocephin for UTI. 12/07/16 10:00 Stable for transfer at this time. Patient with thoracic spine MRI that is consistent with her diagnosis. Patient was treated for urinary tract infection here with Rocephin. Urine culture sent. (GISEL LOVE) - Vital Signs Vital signs: Temp Pulse Resp BP Pulse Ox 97.8 F 78 18 118/81 98 12/07/16 09:51 12/06/16 22:24 12/07/16 09:51 12/07/16 09:51 12/07/16 09:52 - Laboratory Laboratory results interpreted by tx: 12/06/16 12/07/16 16:50 00:35 Hgb 11.6 L MCV 75 L MCH 23.4 L MCHC 31.4 L RDW 18.6 H Monocytes % 16.4 H Ur Leukocyte Esterase MODERATE H - Consults [facility] Reason for consultation: 12/06/16 18:30 Called [facility] to speak with Dr. Mauricio or whoever is non clinical advisor for this provider. 12/06/16 19:20 Call from [facility], but they hung up before being able to answer the phone. 12/06/16 19:35 Recontacted [facility] to speak with the non clinical advisor provider for Dr. Mauricio, they will call back. 12/06/16 20:[address] Jeffers, Neurology resident, he will talk with his attending about the patient and call back. 12/06/16 20:[address] Jeffers to discuss patient. The patient needs an MRI to determine if there is a flare and we cannot get an MRI until the morning. If there is no enhancement the patient will not need to be transferred. If there is enhancement the patient can be transferred to [facility] for possible treatment. If patient desaturates then she should be transferred as well or shows any signs of objective respiratory compromise. Does not recommend any other intervention beyond cardiac/respiratory monitoring. 12/07/16 01:51 After care was transferred to Dr. Love, Dr. Oliva recommends the patient be transferred to [facility]. Contacted [facility] at this time for possible transfer, they will call back. 12/07/16 01:58 Call from [facility] spoke with Dr. Jeffers for possible transfer. Dr. Jeffers refuses to accept the patient for transfer at this time. 12/07/16 02:09 Spoke with the [facility] transfer center about current patient care situation, they will call Dr. Jeffers and call back. 12/07/16 02:17 Call from the transfer center, Dr. Gaines, Neurology attending accepts the patient for transfer to [facility]. Patient will be an ED to ED transfer. (LESLYE BARKSDALE) Dr. Oliva Reason for consultation: 12/06/16 22:[address] Oliva for possible admit. He would like to come examine the patient first and then make a decision. Current vitals are: Heart rate 79, blood pressure 120/75, 100% O2 saturation on room air, 97.7 F temperature. 12/06/16 00:55 After care was transferred to Dr. Love. Spoke with Dr. Oliva in the department about the patient and possible admission, he is going to evaluate the patient first. 12/07/16 01:50 After care was transferred to Dr. Love. Spoke with Dr. Oliva in the department after he evaluated the patient. He recommends the patient should be transferred to [facility] since her symptoms are getting progressively worse. 12/07/16 02:[address] Oliva in the department about patient's current transfer situation. (LESLYE BARKSDALE) Discharge <REINALDO HUERTA - Last Filed: 12/07/16 00:38> <LESLYE BARKSDALE - Last Filed: 12/07/16 02:54> <GISEL LOVE - Last Filed: 12/07/16 10:31> - Discharge Clinical Impression: Neuromyelitis optica, left chest wall stiffness, Numbness Condition: Stable Disposition: [facility] Scribe Attestation: 12/07/16 10:31 I personally performed the services described in the documentation, reviewed and edited the documentation which was dictated to the scribe in my presence, and it accurately records my words and actions. (GISEL LOVE) Scribe Documentation - Scribe Written by Yvon:: Yvon Wilkins 12/06/2016 22:32 acting as scribe for :: Sarah <LESLYE BARKSDALE - Last Filed: 12/07/16 02:54>
[2016-12-07 01:09] LABS: APPEARANCE,URINE CLOUDY; BILIRUBIN,URINE NEGATIVE (NEGATIVE); GLUCOSE, URINE NEGATIVE (NEGATIVE); KETONES,URINE NEGATIVE (NEGATIVE); LEUKOCYTE ESTERASE,URINE MODERATE (NEGATIVE); NITRITE,URINE NEGATIVE (NEGATIVE); PROTEIN,URINE NEGATIVE (NEGATIVE); URINE SPECIFIC GRAVITY 1.013; UROBILINOGEN,URINE NEGATIVE mg/dL (<2.0)
--- NOTE | 2016-12-07 02:23 | PDOC CONSULTATION ---
Consultation Consult Date: 12/07/16 Attending physician:: REINALDO HUERTA Consult reason:: NMO flare History of Present Illness Admission Date/PCP: PCP Med [facility] Neuro Dr. Mauricio, [facility] Patient complains of: NMO flare History of Present Illness: ALTON QUINONES is a 41 year old female, diagnosed with neuromyelitis optica in April of this year, followed at [facility] by Dr. Mauricio for same, who presents to the emergency room for evaluation of what she feels is a flare of her condition. Patient has been discussed with emergency room physician who evaluated the patient. Symptoms started this past Thursday which typically consist of mild spasm-like muscular discomfort along her left flank, along with a sensation of numbness and heaviness as she describes it, across her abdomen. This is been associated with gradual enlarging of area of numbness along her left hip and left lower extremity, and the sensation that "I have to think about breathing at times." All in all, she feels this is another of her typical flares. Her last flare, with resulting plasma exchange was 3 months ago. Since then, she has been essentially nonambulatory due to weakness. She has had nausea but no vomiting. No fever or chills, diarrhea or dysuria. Chronically incontinent of both stool and urine. Prior to my being called, the emergency room physician did discuss the patient with on-call resident at [facility]. He recommended MRI study, but was informed that study was not available at our facility at this time at night. Please see extensive documentation by emergency room physician concerning her discussion with the resident at [facility]. Her notes are reviewed. Patient overall feels that her condition with this flare is gradually worsening. When she arrived in the emergency room, she was able to lift her right leg; now is not able to. Also states she is not able to smile as much is she typically can and all in all, again feels this episode is slowly worsening. Dictation via voice recognition software. Laboratory results are listed in [employer] and are reviewed. Social history/personal habits: . Has children. On disability. No use of alcohol tobacco or illicit drugs. Allergies/adverse reactions are listed in [employer] and are reviewed. No problems with Zofran. Home medications initially autopopulated into [employer] may not accurately reflect patient's true medications, dosages, and/or frequencies. Unfortunately, patient not certain of all medications/dosages/frequencies. REVIEW OF SYSTEMS: Constitutional: No fever or chills. Eyes: Wears glasses. ENT: No swallowing problems or complaints. Denies hearing loss. Pulmonary: No current complaints. Cardiovascular: No current complaints, including chest pain. Gastrointestinal: See history and present illness. Skin: No current complaints, including rashes. Hematologic: Easy bruising. Neurologic: See history and present illness. Musculoskeletal: No current or chronic joint complaints, such as arthritis. Psychiatric: Denies anxiety or depression. Endocrine: No current complaints, including polyuria. Genitourinary: No current complaints, including dysuria. 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 5 feet 3 inches tall. 52.6 kg. BMI 20.5 kg/m. Blood pressure 122/81. Pulse 76 and regular. 100% saturation on room air. Respirations are 12 and unlabored. Temperature 97.7. Thin otherwise well-developed female appearing approximately her stated age. Pleasant awake alert and cooperative. Seems somewhat fatigued. Maintaining airway well. Skin is warm and dry. No grossly obvious evidence of rash in areas of skin examined. No subcutaneous nodules palpated. ENT: Hearing grossly normal to normal conversation. Tongue midline on protrusion pink and slightly moist. Eyes: No scleral icterus. Pupils equal and reactive to light at 4 mm. [place] conjunctivae. Neck is supple and nontender to gentle active range of motion and palpation. Midline trachea. No palpable thyroid nodule mass enlargement or tenderness. Lymphatic: No palpable cervical or clavicular nodes. Neck and lymphatic exams limited by patient body habitus. Psychiatric: Reasonable insight into acute and chronic medical issues. Oriented to time location and why here. Lungs: Auscultation reveals clear and equal breath sounds bilaterally. No use of accessory respiratory muscles. Cardiovascular: Heart regular rate and rhythm, without gallop murmur or rub. No carotid or abdominal aortic bruits. Mild bilateral symmetric slightly pitting ankle and pedal edema. Faintly palpable dorsalis pedis pulses. Abdomen:soft slightly distended nontender with positive bowel sounds. Unable to adequately evaluate abdomen for masses or organomegaly due to distention. Extremities: Feet are warm and dry. No calf tenderness to compression. No grossly obvious visual evidence of calf swelling. Neurologic: Moves upper extremities slowly. Patellar reflexes absent. Absent Babinski. Light touch is intact at feet. Plantarflexion of feet 4/5; dorsiflexion 3/5 and symmetric. Handgrip, biceps and triceps function 5/5 and symmetric. Flexion of right thigh at hip 3/5; slightly less on the left. Past Medical History Cardiac Medical History: Denies: Atrial Fibrillation, Congestive Heart Failure, Coronary Artery Disease, DVT, Myocardial Infarction, Hyperlipidema, Hypertension, Pulmonary Embolism Pulmonary Medical History: Denies: Asthma, Chronic Obstructive Pulmonary Disease (COPD), Sleep Apnea EENT Medical History: Reports: Eyes - Wears glasses Denies: Ears, Throat Neurological Medical History: Reports: Other - neuromyelitis optica Denies: Hemorrhagic CVA, Ischemic CVA, Seizures Endocrine Medical History: Denies: Diabetes Mellitus Type 1, Diabetes Mellitus Type 2, Hyperthyroidism, Hypothyroidism Renal/ Medical History: Reports: Other - Incontinent of urine GI Medical History: Denies: Cirrhosis, Gastroesophageal Reflux Disease, Hepatitis, Peptic Ulcer Disease Musculoskeltal Medical History: Reports: Arthritis - RA Skin Medical History: Reports: None Psychiatric Medical History: Denies: Alcohol Dependency, Depression, General Anxiety Disorder, Substance Abuse, Tobacco Dependency Hematology: Reports: Other - Easy bruising Infectious Medical History: Denies: Hepatitis B, Hepatitis C Past Surgical History Past Surgical History: Reports: Other - D&C Social History Information Source: Patient, Emergency Med Personnel, [facility] Records Lives with: Spouse/Significant other Smoking Status: Unknown if Ever Smoked Frequency of Alcohol Use: None Drugs: None - Advance Directive Resuscitation Status: Full Code Surrogate healthcare decision maker:: Family History Family History: None Parental Family History Reviewed: Yes - Parents with "health problems" Children Family History Reviewed: Yes - Child with special needs Sibling(s) Family History Reviewed.: Yes - Sister with "health problems" Medication/Allergy Home Medications: Cephalexin Monohydrate [Keflex 500 mg Capsule] 500 mg PO QID #40 capsule Diphenhydramine HCl [Benadryl] 50 mg PO Q8H #30 capsule 01/10/15 Hydrocodone/Acetaminophen [Sunset 5-325 Tablet] 1 each PO Q6 #15 tablet 01/10/15 Allergies/Adverse Reactions: promethazine HCl [From Phenergan] Allergy (Verified 12/06/16 16:25) Physical Exam Vital Signs: Temp Pulse Resp BP Pulse Ox 97.7 F 78 13 130/102 H 100 12/06/16 22:24 12/06/16 22:24 12/06/16 23:41 12/06/16 23:41 12/06/16 23:41 Intake & Output 12/06/16 12/07/16 12/08/16 00:59 00:59 00:59 Weight 52.617 kg Results Laboratory Results: 12/06/16 16:50 12/06/16 16:50 12/06/16 12/06/16 12/06/16 16:50 16:50 16:50 WBC 4.2 RBC 4.96 Hgb 11.6 L Hct 37.0 MCV 75 L MCH 23.4 L MCHC 31.4 L RDW 18.6 H Plt Count 189 Seg Neutrophils % 54.5 Lymphocytes % 26.0 Monocytes % 16.4 H Eosinophils % 1.6 Basophils % 1.5 Absolute Neutrophils 2.3 Absolute Lymphocytes 1.1 Absolute Monocytes 0.7 Absolute Eosinophils 0.1 Absolute Basophils 0.1 Sodium 143.5 Potassium 4.0 Chloride 105 Carbon Dioxide 27 Anion Gap 12 BUN 9 Creatinine 0.58 Est GFR ( Amer) > 60 Est GFR (Non-Af Amer) > 60 Glucose 82 Calcium 9.5 Total Bilirubin 0.3 AST 21 ALT 32 Alkaline Phosphatase 104 Total Protein 6.8 Albumin 4.2 Lipase 176.0 Serum HCG, Qual NEGATIVE Urine Color Urine Appearance Urine pH Ur Specific [place] Urine Protein Urine Glucose (UA) Urine Ketones Urine Blood Urine Nitrite Ur Leukocyte Esterase Urine WBC (Auto) Urine RBC (Auto) 12/07/16 00:35 WBC RBC Hgb Hct MCV MCH MCHC RDW Plt Count Seg Neutrophils % Lymphocytes % Monocytes % Eosinophils % Basophils % Absolute Neutrophils Absolute Lymphocytes Absolute Monocytes Absolute Eosinophils Absolute Basophils Sodium Potassium Chloride Carbon Dioxide Anion Gap BUN Creatinine Est GFR ( Amer) Est GFR (Non-Af Amer) Glucose Calcium Total Bilirubin AST ALT Alkaline Phosphatase Total Protein Albumin Lipase Serum HCG, Qual Urine Color YELLOW Urine Appearance CLOUDY Urine pH 5.0 Ur Specific [place] 1.013 Urine Protein NEGATIVE Urine Glucose (UA) NEGATIVE Urine Ketones NEGATIVE Urine Blood NEGATIVE Urine Nitrite NEGATIVE Ur Leukocyte Esterase MODERATE H Urine WBC (Auto) >182 Urine RBC (Auto) 5 Assessment & Plan - Diagnosis (1) Neuromyelitis optica Is this a current diagnosis for this admission?: Yes Plan: At this point in time, with patient subjectively feeling that her flare is worsening, I feel her medical needs would be better served at [facility], where she is normally followed and managed for this rather complex condition. I have discussed patient with Dr. Guzman, who is covering for the original evaluating ER physician, and have recommended the above. She agrees. Thank you for asking us see this unfortunate patient. 55 minutes spent in evaluation management of patient.
--- NOTE | 2016-12-07 09:50 | RADIOLOGY REPORT (SQ) ---
EXAM DESCRIPTION: MRI CERVICAL SPINE COMBO COMPLETED DATE/TIME: 12/07/2016 9:33 am REASON FOR STUDY: flare of neuromyelitis optica, stiff chest wall COMPARISON: 05/16/2016. Please also refer to separately dictated dedicated thoracic MRI from today. TECHNIQUE: Sagittal and Axial imaging includes T1, T2, STIR and gradient echo sequences. T1 post neeraj olinium sequences. CONTRAST TYPE AND DOSE: 10 mL Multihance. RENAL FUNCTION: None required. The patient is less than 50 years old. LIMITATIONS: None. FINDINGS: ALIGNMENT: Normal. VERTEBRAE: Intact. BONE MARROW: Normal. No marrow replacement or reactive changes. DISCS: Normal. No significant abnormal signal or loss of height. HARDWARE: None in the spine. CORD AND BASE OF BRAIN: Cervical cord looks normal as does the visualized inferior brain. No enhanci ng lesions. Abnormal thoracic cord signal, incompletely assessed. See separate dictation from same date. SOFT TISSUES: No soft tissue masses. STENOSIS: No central spinal stenosis identified. No significant disc bulges or protrusions. Genera lly patent neural foramina. UPPER THORACIC: See separate dictation. ENHANCEMENT: No abnormal cervical enhancement. OTHER: No other significant finding. IMPRESSION: 1. Unremarkable MR cervical spine. 2. There is thoracic cord pathology, however. See s eparate dictation from same date. COMMENT: None. TECHNICAL DOCUMENTATION: JOB ID: [id number] [employer]- All Rights Reserved
--- NOTE | 2016-12-07 09:56 | RADIOLOGY REPORT (SQ) ---
EXAM DESCRIPTION: MRI THORACIC SPINE COMBO COMPLETED DATE/TIME: 12/07/2016 9:33 am REASON FOR STUDY: flare of neuromyelitis optica, stiff chest wall COMPARISON: 05/16/2016. Please also see separately dictated MRI cervical spine from today. TECHNIQUE: Sagittal and Axial imaging includes T1, T2, STIR and gradient echo sequences. T1 post ga dolinium sequences. CONTRAST TYPE AND DOSE: Please refer to cervical spine dictation. RENAL FUNCTION: None required. The patient is less than 50 years old. LIMITATIONS: None. FINDINGS: LOCALIZER: No worrisome findings. ALIGNMENT: Normal. VERTEBRAE: Intact. BONE MARROW: Normal. No marrow replacement or reactive changes. HARDWARE: None in the spine. CORD: Abnormal hyperintense T2 signal within the cord with expansion in the upper thoracic region. T his extends from approximately T2 through T8. Patchy areas of enhancement noted throughout this leve l after gadolinium administration. SOFT TISSUES: No soft tissue masses. THORACIC DISCS T1-T12: No significant spinal stenosis or exit foraminal stenosis. LOWER CERVICAL: See separate report. UPPER LUMBAR: Incompletely imaged. No significant spinal stenosis or exit foraminal stenosis. ENHANCEMENT: As above. OTHER: No other significant finding. IMPRESSION: 1. Abnormal cord signal and expansion with associated patchy enhancement essentially in volving T2 through T8 in a patient with history of neuromyelitis optica. This myelopathy was present previously, however, on today's imaging, the lower cervical spine looks normal (previously involved) . Please correlate with the separately dictated cervical MRI study from today. TECHNICAL DOCUMENTATION: JOB ID: [id number] [employer]- All Rights Reserved
[2016-12-07 10:09] VITALS: BP 118/81
== END 2016-12-07 10:12 | disposition short-term general hospital (02) ==
LOC: ER 16:21
DX: G36.0 Neuromyelitis optica [Devic] (principal); R07.89 Other chest pain; R20.0 Anesthesia of skin; D64.89 Other specified anemias
CPT/HCPCS: 99285; 36415; 83690; 84703; 85025; 80053; 81001; 72156; 72157; A9577; J7030

== ENCOUNTER 2019-01-11 18:14 | Emergency (ER) | payer MEDICAID ==
[2019-01-11] MEDS ORDERED: IBUPROFEN 600 MG TABLET PO ONE (18:25)
--- NOTE | 2019-01-11 18:26 | ER Document Report ---
ED Medical Screen (RME) - General Chief Complaint: Numbness Stated Complaint: NUMBNESS BOTH LEG Time Seen by Provider: 01/11/19 18:22 Notes: Patient is a 43-year-old female who presents to the emergency department with a chief complaint of right ankle pain. Patient states that she was sleeping and woke up to go to the bathroom but does not remember much of what had happened and when she woke up she had right ankle pain. She could not put pressure on her right ankle. Exam: Tenderness to right lateral ankle. I have greeted and performed a rapid initial assessment of this patient. A comprehensive ED assessment and evaluation of the patient, analysis of test results and completion of medical decision making process will be conducted by an additional ED providers. TRAVEL OUTSIDE OF THE [place] IN LAST 30 DAYS: No - Related Data Allergies/Adverse Reactions: promethazine HCl [From Phenergan] Allergy (Verified 12/06/16 16:25) Past Medical History - Past Medical History Cardiac Medical History: Denies: Hx Atrial Fibrillation, Hx Congestive Heart Failure, Hx Coronary Artery Disease, Hx DVT, Hx Heart Attack, Hx Hypercholesterolemia, Hx Hypertension, Hx Pulmonary Embolism Pulmonary Medical History: Reports: Hx Bronchitis Denies: Hx Asthma, Hx COPD, Hx Sleep Apnea Neurological Medical History: Denies: Hx Seizures Endocrine Medical History: Denies: Hx Diabetes Mellitus Type 1, Hx Diabetes Mellitus Type 2, Hx Hyperthyroidism, Hx Hypothyroidism Renal/ Medical History: Denies: Hx Peritoneal Dialysis GI Medical History: Denies: Hx Cirrhosis, Hx Gastroesophageal Reflux Disease, Hx Hepatitis Musculoskeltal Medical History: Reports Hx Arthritis - RA Psychiatric Medical History: Denies: Hx Depression Infectious Medical History: Denies: Hx Hepatitis Past Surgical History: Reports: Hx Gynecologic Surgery - D&C, Other - D&C - Immunizations Immunizations up to date: Yes Hx Diphtheria, Pertussis, Tetanus Vaccination: No
--- NOTE | 2019-01-11 18:42 | ER Document Report ---
ED Medical Screen (RME) - General Chief Complaint: Numbness Stated Complaint: NUMBNESS BOTH LEG Time Seen by Provider: 01/11/19 18:22 Notes: Please disregard previous RME note: Patient is a 43-year-old female presents emergency department with a chief complaint of bilateral lower extremity weakness. Patient has neuromyelitis optica. She was diagnosed about 2 and half years ago. Patient states that she is normally able to walk with assistance, but has gotten weaker. She also has muscle spasms. Patient states that her lesion is from C5-T8. Patient states she is not able to wiggle her toes anymore. Exam: Flaccid lower extremities with mild twitching when patient attempts to move toes. I have greeted and performed a rapid initial assessment of this patient. A comprehensive ED assessment and evaluation of the patient, analysis of test results and completion of medical decision making process will be conducted by an additional ED providers. TRAVEL OUTSIDE OF THE [place] IN LAST 30 DAYS: No - Related Data Allergies/Adverse Reactions: promethazine HCl [From Phenergan] Allergy (Verified 12/06/16 16:25) Past Medical History - Social History Frequency of alcohol use: None Drug Abuse: None - Past Medical History Cardiac Medical History: Denies: Hx Atrial Fibrillation, Hx Congestive Heart Failure, Hx Coronary Artery Disease, Hx DVT, Hx Heart Attack, Hx Hypercholesterolemia, Hx Hypertension, Hx Pulmonary Embolism Pulmonary Medical History: Reports: Hx Bronchitis Denies: Hx Asthma, Hx COPD, Hx Sleep Apnea Neurological Medical History: Denies: Hx Seizures Endocrine Medical History: Denies: Hx Diabetes Mellitus Type 1, Hx Diabetes Mellitus Type 2, Hx Hyperthyroidism, Hx Hypothyroidism Renal/ Medical History: Denies: Hx Peritoneal Dialysis GI Medical History: Denies: Hx Cirrhosis, Hx Gastroesophageal Reflux Disease, Hx Hepatitis Musculoskeltal Medical History: Reports Hx Arthritis - RA Psychiatric Medical History: Denies: Hx Depression Infectious Medical History: Denies: Hx Hepatitis Past Surgical History: Reports: Hx Gynecologic Surgery - D&C, Other - D&C - Immunizations Immunizations up to date: Yes Hx Diphtheria, Pertussis, Tetanus Vaccination: No
[2019-01-11 19:11] LABS: ABSOLUTE BASOPHILS # (AUTO) 0.1 10^3/uL (0.0-0.2); ABSOLUTE EOSINOPHILS # (AUTO) 0.1 10^3/uL (0.0-0.6); ABSOLUTE LYMPHOCYTES (AUTO) 1.4 10^3/uL (0.5-4.7); ABSOLUTE MONOCYTES (AUTO) 0.5 10^3/uL (0.1-1.4); ABSOLUTE NEUT (AUTO) 5.1 10^3/uL (1.7-8.2); EOSINOPHILS % (AUTO) 1.4 % (0-6); HEMATOCRIT 40.2 % (36.0-47.0); LYMPHOCYTES % (AUTO) 19.7 % (13-45); MEAN CORPUSCULAR HEMOGLOBIN 25.4 pg (27.0-33.4); MEAN CORPUSCULAR HGB CONC 32.3 g/dL (32.0-36.0); MEAN CORPUSCULAR VOLUME 79 fl (80-97); MONOCYTES % (AUTO) 6.5 % (3-13); PLATELET COUNT 241 10^3/uL (150-450); RED BLOOD COUNT 5.11 10^6/uL (3.72-5.28); RED CELL DISTRIBUTION WIDTH 16.4 % (11.5-14.0); SEGMENTED NEUTROPHILS % (AUTO) 71.4 % (42-78); TOTAL CELLS COUNTED % (AUTO) 100 %; WHITE BLOOD COUNT 7.1 10^3/uL (4.0-10.5)
[2019-01-11 19:24] LABS: ALBUMIN 4.2 g/dL (3.5-5.0); ALKALINE PHOSPHATASE 116 U/L (38-126); ANION GAP 12 (5-19); ASPARTATE AMINO TRANSFERASE 31 U/L (14-36); BILIRUBIN,DIRECT 0.2 mg/dL (0.0-0.4); BILIRUBIN,TOTAL 0.4 mg/dL (0.2-1.3); BLOOD UREA NITROGEN 13 mg/dL (7-20); CALCIUM 9.7 mg/dL (8.4-10.2); CARBON DIOXIDE 25 mmol/L (22-30); CHLORIDE 103 mmol/L (98-107); GLUCOSE 107 mg/dL (75-110); POTASSIUM 4.2 mmol/L (3.6-5.0)
--- NOTE | 2019-01-11 19:40 | ER Document Report ---
ED Neuro Symptoms/Deficit - General Chief Complaint: Numbness Stated Complaint: NUMBNESS BOTH LEG Time Seen by Provider: 01/11/19 18:22 Notes: 43-year-old female with an NMOSD with lesion from C5-T8 presents emergency department with a chief complaint of bilateral lower extremity weakness. She was diagnosed with the disease about 2 and half years ago. Patient states that she is normally able to walk with assistance, but has gotten weaker over the last 3 to 4 days to the point now where she is flaccid bilaterally. She cannot even wiggle her toes. She states she also has muscle spasms in her left thigh. She does have significantly reduced sensation to touch. No respiratory distress, no chest pain. Patient is followed at [facility] by Dr. Mauricio. Patient was instructed to come to the emergency department after talking to the neurology service there today. Patient states that typically she requires plasmapheresis when she has acute attacks. TRAVEL OUTSIDE OF THE [place] IN LAST 30 DAYS: No - Related Data Allergies/Adverse Reactions: promethazine HCl [From Phenergan] Allergy (Verified 12/06/16 16:25) Past Medical History - Social History Smoking Status: Unknown if Ever Smoked Frequency of alcohol use: None Drug Abuse: None Family History: None Patient has suicidal ideation: No Patient has homicidal ideation: No - Past Medical History Cardiac Medical History: Denies: Hx Atrial Fibrillation, Hx Congestive Heart Failure, Hx Coronary Artery Disease, Hx DVT, Hx Heart Attack, Hx Hypercholesterolemia, Hx Hypertens ion, Hx Pulmonary Embolism Pulmonary Medical History: Reports: Hx Bronchitis Denies: Hx Asthma, Hx COPD, Hx Sleep Apnea Neurological Medical History: Denies: Hx Seizures Endocrine Medical History: Denies: Hx Diabetes Mellitus Type 1, Hx Diabetes Mellitus Type 2, Hx Hyperthyroidism, Hx Hypothyroidism Renal/ Medical History: Denies: Hx Peritoneal Dialysis GI Medical History: Denies: Hx Cirrhosis, Hx Gastroesophageal Reflux Disease, Hx Hepatitis Musculoskeletal Medical History: Reports Hx Arthritis - RA Psychiatric Medical History: Denies: Hx Depression Infectious Medical History: Denies: Hx Hepatitis Past Surgical History: Reports: Hx Gynecologic Surgery - D&C, Other - D&C - Immunizations Immunizations up to date: Yes Hx Diphtheria, Pertussis, Tetanus Vaccination: No Review of Systems - Review of Systems Constitutional: See HPI EENT: No symptoms reported Cardiovascular: See HPI Respiratory: See HPI Gastrointestinal: No symptoms reported Genitourinary: No symptoms reported Female Genitourinary: No symptoms reported Musculoskeletal: No symptoms reported Skin: No symptoms reported Hematologic/Lymphatic: No symptoms reported Neurological/Psychological: See HPI Physical Exam - Vital signs Vitals: Resp Pulse Ox 17 97 01/11/19 19:44 01/11/19 19:44 - Notes Notes: PHYSICAL EXAMINATION: Reviewed vital signs and charting by RN GENERAL: Alert, interacts well. No acute distress. HEAD: Normocephalic, atraumatic. EYES: Pupils equal and round. Extraocular movements intact. ENT: Oral mucosa moist, tongue midline. NECK: Full range of motion. Trachea midline. LUNGS: Clear to auscultation bilaterally, no wheezes, rales, or rhonchi. No respiratory distress. HEART: Regular rate and rhythm. No murmur ABDOMEN: soft, non-tender. No distention. Bowel sounds present EXTREMITIES: Bilateral lower extremities are flaccid, 0/5 strength, sensation is intact to painful stimulus and sensation reduces distally, patellar and Achilles reflexes intact bilateral PSYCH: Normal affect, normal mood. SKIN: Warm, dry, normal turgor. No rashes or lesions noted. Course - Re-evaluation Re-evalutation: 01/11/19 19:[address] Wasserman, neurologist on-call at [facility], who recommended that we get a CT of the cervical and CT thoracic spine with and without gadolinium to assess if there are any active lesions. It has been ordered. 01/12/19 00:[address] Wasserman again after the MRI was performed and the images were all pushed over to [facility]. Dr. Wasserman consulted with Dr. Hawthorne, neuro machinist wood attending on-call at [facility]. Their recommendation with there was no active inflammatory flareup and this most likely represented a symptomatic flareup based on their review of imaging. Per their recommendation the patient is okay to discharge home and follow-up with Dr. Mauricio in the morning for further guidance - Vital Signs Vital signs: Temp Pulse Resp BP Pulse Ox 97.8 F 16 110/63 99 01/11/19 20:38 01/12/19 00:00 01/11/19 23:31 01/12/19 00:00 - Laboratory Result Diagrams: 01/11/19 16:48 01/11/19 16:48 Laboratory results interpreted by me: 01/11/19 01/11/19 16:48 22:45 MCV 79 L MCH 25.4 L RDW 16.4 H Urine Urobilinogen 2.0 H Discharge - Discharge Clinical Impression: Neuromyelitis optica spectrum disorder Condition: Good Disposition: HOME, SELF-CARE Additional Instructions: You were seen in the emergency department this evening for a symptomatic flareup of your neuromyelitis optica spectrum disorder. The MRI of your cervical and thoracic spine did not show any active flareup and after speaking with the neuro machinist wood at [facility] this most likely represents a symptomatic flareup. They were all reassured and with that you are okay to go home and call Dr. Mauricio first thing in the morning. Please do not hesitate to return to the emergency department if you have any other concerning symptoms. Thank you for your patience this evening.
--- NOTE | 2019-01-11 23:02 | RADIOLOGY REPORT (SQ) ---
EXAM DESCRIPTION: MR CERVICAL SPINE WITHOUT THEN WITH IV CONTRAST COMPLETED DATE/TME: 01/11/2019 19:32 CLINICAL HISTORY: 43 years, Female, neuromyelitis optica SD, ?active lesion C5-T8? COMPARISON: Prior MRI cervical spine 12/07/2016 TECHNIQUE: 277 Images stored on PACS. LIMITATIONS: None. FINDINGS: Vertebral body height and alignment in the cervical spine is preserved. Partial visualization of an expansile T2 hyperintense cord lesion at the T2/T3 level. This was also present previously. T1 and T2 hyperintense nonenhancing lesion involving the T1 vertebral body likely reflects vertebral body hemangioma. This was also present previously. Subtle extension of T2 signal proximally described on the prior exam is much less appreciated on today's study possibly due to technique. However there is some very subtle nonexpansile increased T2 signal within the cord which extends cephalad to approximately the C3 level. No new areas of abnormal cord signal. No evidence for central canal stenosis or neural foraminal compromise within the cervical spine. IMPRESSION: Partially visualized T2 hyperintense cord lesion at T2/T3 level, as described previously. The abnormal signal which extended cephalad into the cervical spine described previously is much less well appreciated on today's study but likely still minimally visible on T2 sequences. No definitive new areas of abnormal cord signal. copyright 2010 [employer]- All Rights Reserved
--- NOTE | 2019-01-11 23:09 | RADIOLOGY REPORT (SQ) ---
EXAM DESCRIPTION: MR THORACIC SPINE WITHOUT THEN WITH IV CONTRAST COMPLETED DATE/TME: 01/11/2019 19:32 CLINICAL HISTORY: 43 years, Female, neuromyelitis optica SD, ?active lesion C5-T8? COMPARISON: None. EXAM DESCRIPTION: CLINICAL HISTORY: neuromyelitis optica SD, ?active lesion C5-T8? COMPARISON: December 07, 2016. TECHNIQUE: Multiplanar multisequence MR imaging of the thoracic spine was performed without and with IV contrast FINDINGS: There is cord signal abnormality in the lower cervical spine and upper thoracic spine extending down to the level of T8. In the upper thoracic spine, there is mild expansion of the cord where there is abnormal signal. This expansion is much less pronounced than previously seen. There is unchanged increased T1 and T2 signal within the T1 vertebral body, likely hemangioma. No definite focal pathologic enhancement of the cord. Patient motion limits detail. There is no evidence of acute fracture. No other acute abnormality. IMPRESSION: Extensive cord signal abnormality consistent with history of neuromyelitis optica. There is less expansion of the cord than was previously seen in November 2016.
[2019-01-11 23:28] LABS: AMORPHOUS SEDIMENT,URINE TRACE /HPF; APPEARANCE,URINE CLOUDY; BILIRUBIN,URINE NEGATIVE (NEGATIVE); COLOR,URINE YELLOW; GLUCOSE, URINE NEGATIVE (NEGATIVE); KETONES,URINE NEGATIVE (NEGATIVE); LEUKOCYTE ESTERASE,URINE NEGATIVE (NEGATIVE); NITRITE,URINE NEGATIVE (NEGATIVE); PROTEIN,URINE NEGATIVE (NEGATIVE); URINE SPECIFIC GRAVITY 1.023
[2019-01-12 00:40] VITALS: BP 96/68
== END 2019-01-12 00:40 | disposition home or self-care (01) ==
LOC: ER 18:14
DX: G36.0 Neuromyelitis optica [Devic] (principal); R20.0 Anesthesia of skin; M62.81 Muscle weakness (generalized); M62.838 Other muscle spasm
CPT/HCPCS: 36415; 85025; 80053; 81001; 72156; 72157; A9576